=== PATIENT | female | born 1970 | race Caucasian/White ===

== ENCOUNTER → 2024-02-24 10:33 | Outpatient (BNVA) | payer OTHER, SELFPAY | PROVIDERS: Visit Provider Psychiatry & Neurology Psychiatry | DX: F31.81 Bipolar II disorder (principal) | CPT/HCPCS: 80053; 80061; 83036; 84443; 85025 ==

== ENCOUNTER → 2024-04-19 14:59 | Outpatient (BNVA) | payer OTHER, SELFPAY | PROVIDERS: Visit Provider Family Medicine | DX: R79.89 Other specified abnormal findings of blood chemistry (principal); Z86.39 Personal history of other endocrine, nutritional and metabolic disease; N18.31 Chronic kidney disease, stage 3a; M25.511 Pain in right shoulder; G89.29 Other chronic pain | CPT/HCPCS: 80053; 84439; 84443; 85025; 86376 ==

== ENCOUNTER 2024-06-21 16:21 | Outpatient (CLI) | payer MEDICAID, SELFPAY ==
[2024-06-21 16:54] LABS: Basophils # 0.1 10^3/uL (0.0-0.1); Basophils % 0.6 %; Eosinophils # 0.2 10^3/uL (0.0-0.8); Lymphocytes # 2.7 10^3/uL (0.8-4.8); Lymphocytes % 31.5 %; Mean Corpuscular HGB Conc 32.4 g/dL (30-55); Mean Corpuscular Hemoglobin 28.6 pg (27-33); Mean Corpuscular Volume 88.4 fl (85-98); Mean Platelet Volume 9.5 fL (7.4-10.4); Monocytes # 0.7 10^3/uL (0.2-0.9); Monocytes % 7.7 %; Neutrophils # 5.03 10^3/uL (1.8-7.7); Nucleated Red Blood Cells % 0 %; Platelet Count 186 10^3/cmm (157-399); Red Blood Count 4.75 10^6/uL (3.85-5.65); Red Cell Distribution Width 13.6 % (12.1-15.1); White Blood Count 8.67 10^3/uL (3.29-11.43)
[2024-06-21 17:16] LABS: Alanine Aminotransferase 19 U/L (0-33); Albumin Level 4.3 g/dL (3.5-5.2); Alkaline Phosphatase 118 U/L (35-105); Aspartate Amino Transferase 13 U/L (0-32); Blood Urea Nitrogen 13 mg/dL (6-20); Calcium 9.1 mg/dL (8.5-10.5); Carbon Dioxide 28 mmol/L (22-29); Chloride 101 mmol/L (98-107); Free T4 Free Thyroxine 0.97 ng/dL (0.82-1.77); Globulin 2.7 g/dL (1.3-4.6); Glomerular Filtration Rate 57.6 mL/min (90-130); Glucose 87 mg/dL (65-115); Osmolality Calculated 291 mOsm/kg (285-295); Sodium 141 mmol/L (136-145); Thyroid Stimulating Hormone 4.51 uIU/mL (0.27-4.20); Total Bilirubin 0.2 mg/dL (0.15-1.2)
[2024-06-21 17:27] LABS: Estmated Average Glucose 117; Hemoglobin A1C 5.7 % (4.0-6.0)
== END 2024-06-21 16:22 | disposition home or self-care (01) ==
LOC: LAB 16:24
PROVIDERS: PCP Family Medicine; Visit Provider Family Medicine
DX: Z51.81 Encounter for therapeutic drug level monitoring (principal); E03.9 Hypothyroidism, unspecified; R73.09 Other abnormal glucose
CPT/HCPCS: 36415; 80053; 83036; 84439; 84443; 85025

== ENCOUNTER 2024-06-24 17:56 | Emergency (ER) | payer MEDICAID, SELFPAY ==
[2024-06-24 18:21] VITALS: BP 134/86; PULSE 70; RESP 18; TEMP 36.6; O2SAT 96; BMI 38.5
[2024-06-24 21:14] LABS: Amphetamines Screen Urine Negative (Negative); Barbiturates Screen Urine Negative (Negative); Benzodiazepines Screen Urine Negative (Negative); Cocaine Screen Urine Negative (Negative); Opiate Screen Urine Negative (Negative); PCP Screen Urine Negative (Negative); THC Screen Urine Negative (Negative)
[2024-06-24 21:37] LABS: Basophils % 0.4 %; Eosinophils # 0.2 10^3/uL (0.0-0.8); Eosinophils % 2.2 %; Hematocrit 42.6 % (36-47); Lymphocytes # 2.7 10^3/uL (0.8-4.8); Lymphocytes % 27.9 %; Mean Corpuscular HGB Conc 32.2 g/dL (30-55); Mean Corpuscular Hemoglobin 28.4 pg (27-33); Mean Corpuscular Volume 88.2 fl (85-98); Mean Platelet Volume 9.1 fL (7.4-10.4); Monocytes # 0.6 10^3/uL (0.2-0.9); Monocytes % 6.1 %; Neutrophils # 6.17 10^3/uL (1.8-7.7); Nucleated Red Blood Cells % 0 %; Platelet Count 193 10^3/cmm (157-399); Red Blood Count 4.83 10^6/uL (3.85-5.65); Red Cell Distribution Width 13.6 % (12.1-15.1)
[2024-06-24 21:56] LABS: Anion Gap 15.7 (5-19); Blood Urea Nitrogen 12 mg/dL (6-20); Calcium 9.5 mg/dL (8.5-10.5); Carbon Dioxide 27 mmol/L (22-29); Chloride 100 mmol/L (98-107); Creatinine Clr Calc Pharmacy 63.2621; Glomerular Filtration Rate 57.6 mL/min (90-130); Glucose 90 mg/dL (65-115); Osmolality Calculated 287 mOsm/kg (285-295); Potassium 3.7 mmol/L (3.5-5.1); Sodium 139 mmol/L (136-145)
--- NOTE | 2024-06-24 22:03 | CTR_ITS ---
PROCEDURE INFORMATION: Exam: CT Abdomen And Pelvis With Contrast Exam date and time: 06/24/2024 10:26 PM Age: 54 years old Clinical indication: Abdominal pain; Periumbilical; Additional info: Low abd pain, dx UTI not getting better, clots in urine TECHNIQUE: Imaging protocol: Computed tomography of the abdomen and pelvis with contrast. Radiation optimization: All CT scans at this facility use at least one of these dose optimization techniques: automated exposure control; mA and/or kV adjustment per patient size (includes targeted exams where dose is matched to clinical indication); or iterative reconstruction. Contrast material: OMNI 350; Contrast volume: 100 ml; Contrast route: INTRAVENOUS (IV); COMPARISON: No relevant prior studies available. RADIATION DOSE METRICS: Total DLP (mGy-cm): 825.19 FINDINGS: Liver: Normal. No mass. Gallbladder and biliary ducts: There has been a cholecystectomy. Pancreas: Normal. No ductal dilation. Spleen: Normal. No splenomegaly. Adrenal glands: Normal. No mass. Kidneys and ureters: Normal. No hydronephrosis. Stomach and bowel: Fatty wall of the colon that might be from prior colitis. Appendix: No evidence of appendicitis. Intraperitoneal space: Unremarkable. No free air. No significant fluid collection. Vasculature: Calcified atheromas of the visualized arteries. There are numerous benign phleboliths in the pelvis. Lymph nodes: Unremarkable. No enlarged lymph nodes. Urinary bladder: Mild thickening of the wall of the bladder, likely related to underdistention. Reproductive: Unremarkable as visualized. Bones/joints: The lumbar spine demonstrates mild degenerative changes at multiple levels. Soft tissues: Unremarkable. CT/CT abdomen pelvis w con* [id number] IMPRESSION: 1. No renal lesion or urinary stones. 2. Bladder wall thickening with mucosal enhancement, consistent with cystitis.
--- NOTE | 2024-06-24 22:04 | W.ED.FEMALGU ---
HPI - Female Genitourinary General: Chief complaint: Urogenital-Female Stated complaint: mucus, blood urine Time Seen by Provider: 06/24/24 20:58 Source: patient Mode of arrival: ambulatory Limitations: no limitations History of Present Illness: Patient is a 54-year-old female with past medical history of CKD stage 3a who presents to the emergency department complaining of dysuria and hematuria worsening over the past few days. On Friday she saw primary care was diagnosed with dehydration. She saw primary care again today and had a urinalysis performed and was treated for UTI with 3 times a day amoxicillin for 5 days. Patient states since discharge she has started to notice that she is urinating clots and has pretty significant pain/fullness sensation when she voids. She compares it to being punched in the gut. However at rest states that it is not as severe, and she is not explicitly having any abdominal pain or back pain. Denies any history of kidney stones or pyelonephritis. Denies any chest pain, shortness of breath, nausea/vomiting/diarrhea, fevers, recent illness, recent medication changes other than the amoxicillin today, and any other symptoms at this time. MD elicited complaint: dysuria Onset (ago): day(s) Location of symptoms: urethra Severity: moderate Quality of pain: other (Pressure) Consistency: constant Urinary symptoms: Dysuria and Hematuria Exacerbating factors: urination Associated symptoms: Reports abdominal pain; Deny headache(s) or nausea Related Data Home Medications ?Medication ?Instructions ?Recorded ?Confirmed alprazolam 0.5 mg tablet 0.5 mg PO BID PRN 02/24/24 06/24/24 fluticasone propionate 50 1 spray intranasal DAILY 02/24/24 06/24/24 mcg/actuation nasal spray,suspension loratadine 10 mg tablet (Claritin) 10 mg PO DAILY 02/24/24 06/24/24 acetaminophen 300 mg-codeine 60 mg 1 tab PO Q6H PRN 04/19/24 06/24/24 tablet metoprolol succinate 25 mg 25 mg PO DAILY 04/19/24 06/24/24 tablet,extended release 24 hr Previous Rx's ?Medication ?Instructions ?Recorded ezetimibe 10 mg tablet 10 mg PO .HS #90 tabs 04/19/24 bupropion HCl 300 mg 24 hr tablet, 300 mg PO QAM #30 tabs 05/21/24 extended release (Wellbutrin XL) buspirone 10 mg tablet 10 mg PO TID #90 tabs 05/21/24 lamotrigine 100 mg tablet 100 mg PO DAILY #30 tabs 05/21/24 lamotrigine 25 mg tablet 25 mg PO DAILY #30 tabs 05/21/24 olanzapine 5 mg tablet 5 mg PO DAILY #30 tabs 05/21/24 risperidone 1 mg tablet 1 mg PO BID #60 tabs 05/21/24 trazodone 50 mg tablet 100 mg (2 x 50 mg) PO .HS PRN 05/21/24 insomnia #60 tabs baclofen 10 mg tablet 10 mg PO BID PRN muscle spasm #30 05/24/24 tabs omeprazole 20 mg capsule,delayed 20 mg PO QDAY #60 caps 05/24/24 release phenazopyridine 100 mg tablet 100 mg PO Q8H 6 doses #6 tabs 06/24/24 (Pyridium) sulfamethoxazole 800 2 tab PO DAILY 10 days #20 tabs 06/24/24 mg-trimethoprim 160 mg tablet (Bactrim DS) Allergies Allergy/AdvReac Type Severity Reaction Status Date / Time carbamazepine (From Tegretol) Allergy Hives Verified 06/24/24 18:26 phenytoin (From Dilantin) Allergy Itching/Turning Verified 06/24/24 18:26 red. divalproex sodium (From AdvReac Severe Excessive Verified 06/24/24 18:26 Depakote) weight gain Novacain Allergy Severe Anaphylaxis Uncoded 06/24/24 18:26 Shellfish Allergy Severe Anaphylaxis Uncoded 06/24/24 18:26 Bee stings AdvReac Severe Swelling Uncoded 06/24/24 18:26 Review of Systems General: Reports: 10 or more systems reviewed and unremarkable except in HPI and below Const: Denies: fever(s), chills, change in appetite, change in weight or diaphoresis ENMT: Denies: throat pain or hoarseness Card: Denies: chest pain, palpitations or lightheadedness Resp: Denies: dyspnea, productive cough or wheezing GI: Reports: abdominal pain; Denies: nausea, vomiting, diarrhea, constipation, bloating, change in stool character or hematochezia : Reports: dysuria and hematuria; Denies: flank pain Musc: Denies: neck pain or back pain Skin/Breast: Denies: rash or new lesions Neuro: Denies: headache(s) or dizziness PFSH ED PFSH: Medical History CKD stage 3a, GFR 45-59 ml/min GERD (gastroesophageal reflux disease) Obesity (BMI 30.0-34.9) Nicotine dependence, cigarettes, uncomplicated Post-traumatic stress disorder, chronic Bipolar 2 disorder Surgical History H/O laparoscopy H/O hysterectomy with oophorectomy H/O arthroscopic knee surgery History of arthroscopic surgery of shoulder Hx of appendectomy Hx of cholecystectomy Family History Grandfather Diabetes Hypertension Chronic kidney disease (CKD) Father Lung disease Mother Heart disease Atrial fibrillation Congestive heart failure (CHF) Grandmother Heart disease Stroke Peripheral vascular disease Sister Cancer Social History Smoking and tobacco/nicotine status: never used tobacco/nicotine Alcohol intake: current Alcohol intake frequency: holidays/special occasions only Substance/Drug Use: never Physical Exam Const: COMMON NORMALS: no acute distress, average body habitus, patient oriented x3, no limitations, healthy appearing, alert and well nourished GENERAL APPEARANCE: cooperative and comfortable ORIENTATION/CONSCIOUSNESS: Yes awake HENMT: COMMON NORMALS: normocephalic, atraumatic, hearing grossly normal bilaterally, external ears normal, Normal external nose present, Normal nasal mucous membranes and turbinates present and moist oral mucous membranes HEAD & SCALP: normocephalic and atraumatic NOSE: Normal external nose present and Normal nasal mucous membranes and turbinates present EXTERNAL EAR: Yes external ears normal Eye: COMMON NORMALS: Equal, round and reactive pupils present, EOMs intact bilaterally, conjunctivae normal and normal visual roland by confrontation CONJUNCTIVA: Yes conjunctivae normal PUPIL: Yes Equal, round and reactive pupils present Neck/C-Spine: COMMON NORMALS: full ROM, supple, no meningeal signs and no JVD Resp: COMMON NORMALS: normal respiratory effort, No retractions, No use of accessory muscles and clear to auscultation bilaterally AUSCULTATION: clear to auscultation bilaterally, no crackles, no rales, no rhonchi and no wheezes Cardio: COMMON NORMALS: no JVD, regular rate, regular rhythm, S1 normal heart sound present, S2 normal heart sound present, No gallops present (Cardio), No clicks present (Cardio), No murmurs present (Cardio), No rub (Cardio) and Peripheral pulses 2+ throughout RATE: regular rate RHYTHM: regular rhythm HEART SOUNDS: S1 normal heart sound present and S2 normal heart sound present PERIPHERAL PULSES: Peripheral pulses 2+ throughout GI: COMMON NORMALS: Normal to inspection, nondistended, normoactive bowel sounds present, Soft to palpation, non-tender, No hepatosplenomegaly present and no masses AUSCULTATION: Yes normoactive bowel sounds PALPATION: Yes Soft to palpation, No Guarding due to palpation present (GI), No Rigid due to palpation and Yes No hepatosplenomegaly present RECTAL EXAM: deferred : COMMON NORMALS: Yes no CVA tenderness BLADDER/KIDNEY EXAM: Yes no CVA tenderness Back/Pelvis: COMMON NORMALS: no CVA tenderness Extremity: COMMON NORMALS: normal to inspection and full ROM Neuro: COMMON NORMALS: patient oriented x3, moves all extremities, no focal motor deficits and no sensory deficits noted SENSORIUM/ORIENTATION: Yes alert MENINGEAL SIGNS: Yes no meningeal signs Psych: COMMON NORMALS: mental status grossly normal, cooperative and speech normal SPEECH: Yes normal speech Skin: COMMON NORMALS: no rashes or lesions noted GENERAL SKIN EXAM: no rashes or lesions noted Course Vital Signs: Vital signs: Vital Signs Temperature 98 F 06/24/24 18:21 Pulse Rate 94 06/24/24 23:13 Respiratory Rate 16 06/24/24 23:13 Blood Pressure 138/96 06/24/24 23:13 Pulse Oximetry 97 06/24/24 23:13 Oxygen Delivery Me thod Room Air 06/24/24 18:21 MDM - Female Medical Decision Making Patient started on amoxicillin today for UTI, reported worsening dysuria and passing clots. Urinalysis here showed red blood cells, white blood cells, bacteria, leukocyte, and was nitrate positive. Rest of her lab work unremarkable. CT showing bladder wall thickening consistent of the cystitis, this is likely a low-grade hemorrhagic cystitis with reports of blood and thus we will have her referred to urology for further evaluation. Family will switch to more appropriate antibiotic, Bactrim, and she is requesting something for the pain so we will give her a few doses of Pyridium. Encouraged her to increase her fluid intake and to return if her condition worsens. She verbalized understanding. Lab Data 06/24/24:06/24/24: Radiology Impressions Abdomen/Pelvis CT 06/24/24 22:03 IMPRESSION: 1. No renal lesion or urinary stones. 2. Bladder wall thickening with mucosal enhancement, consistent with cystitis. Laboratory Results WBC 9.80 10^3/uL (3.29-11.43) 06/24/24: RBC 4.83 10^6/uL (3.85-5.65) 06/24/24 Hgb 13.70 g/dL (11.27-16.99) 06/24/24: Hct 42.6 % (36-47) 06/24/24: MCV 88.2 fl (85-98) 06/24/24: MCH 28.4 pg (27-33) 06/24/24: MCHC 32.2 g/dL (30-55) 06/24/24: RDW 13.6 % (12.1-15.1) 06/24/24 Plt Count 193 10^3/cmm (157-399) 06/24/24: MPV 9.1 fL (7.4-10.4) 06/24/24: Neut % (Auto) 63.0 % 06/24/24: Lymph % (Auto) 27.9 % 06/24/24: [place] % (Auto) 6.1 % 06/24/24: Eos % (Auto) 2.2 % 06/24/24 Baso % (Auto) 0.4 % 06/24/24 Neut # (Auto) 6.17 10^3/uL (1.8-7.7) 06/24/24 Lymph # (Auto) 2.7 10^3/uL (0.8-4.8) 06/24/24: [place] # (Auto) 0.6 10^3/uL (0.2-0.9) 06/24/24 21:25 Eos # (Auto) 0.2 10^3/uL (0.0-0.8) 06/24/24 21: Baso # (Auto) 0.0 10^3/uL (0.0-0.1) 06/24/24: Nucleated RBC % (auto) 0 % 06/24/24: Nucleated RBCs # 0.0 /100WBC 06/24/24 21: Sodium 139 mmol/L (136-145) 06/24/24 21: Potassium 3.7 mmol/L (3.5-5.1) 06/24/24: Chloride 100 mmol/L (98-107) 06/24/24: Carbon Dioxide 27 mmol/L (22-29) 06/24/24: Anion Gap 15.7 (5-19) 06/24/24: BUN 12 mg/dL (6-20) 06/24/24: Creatinine 1.0 mg/dL (0.5-0.9) H 06/24/24: GFR Calculation 57.6 mL/min (90-130) L 06/24/24: Glucose 90 mg/dL (65-115) 06/24/24: Calculated Osmolality 287 mOsm/kg (285-295) 06/24/24: Calcium 9.5 mg/dL (8.5-10.5) 06/24/24: Lipase 16 U/L (13-60) 06/24/24: Urine Color Yellow (Yellow) 06/24/24: Urine Appearance Turbid (CLEAR) A 06/24/24: Urine pH 5.0 (5-7) 06/24/24: Ur Specific [place] 1.018 (1.005-1.030) 06/24/24: Urine Protein 3+ (Negative) A 06/24/24: Urine Glucose (UA) Negative (Normal) 06/24/24: Urine Ketones Negative (Negative) 06/24/24: Urine Blood 3+ (Negative) A 06/24/24: Urine Nitrate Positive (Negative) A 06/24/24:20 Urine Bilirubin Negative (Negative) 06/24/24 21:20 Urine Urobilinogen 1.0 mg/dL (Negative) 06/24/24 21:20 Ur Leukocyte Esterase 2+ (Negative) A 06/24/24 21:20 Urine RBC 40-50 /hpf (0-2) H 06/24/24 21:20 Urine WBC 25-40 /hpf (0-5) H 06/24/24 21:20 Ur Squamous Epith Cells 0-4 /hpf (0-5) H 06/24/24 21:20 Amorphous Sediment Not Reportable 06/24/24 21:20 Urine Bacteria 2+ /hpf (NONE) H 06/24/24 21:20 Urine Opiates Screen Negative ng/mL (Negative) 06/24/24 20: Ur Barbiturates Screen Negative ng/mL (Negative) 06/24/24 20:28 Ur Phencyclidine Scrn Negative ng/mL (Negative) 06/24/24 20:28 Ur Amphetamines Screen Negative ng/mL (Negative) 06/24/24 20:28 U Benzodiazepines Scrn Negative ng/mL (Negative) 06/24/24 20:28 Urine Cocaine Screen Negative ng/mL (Negative) 06/24/24 20:28 U Marijuana (THC) Screen Negative ng/mL (Negative) 06/24/24 20:28 All radiology interpretation(s) finalized by discharge Discharge Plan Discharge Patient Disposition: Home Clinical Impression: Acute hemorrhagic cystitis Condition: Stable Prescriptions: New sulfamethoxazole-trimethoprim [Bactrim DS] 800-160 mg tablet 2 tab PO DAILY 10 Days Qty: 20 0RF phenazopyridine [Pyridium] 100 mg tablet 100 mg PO Q8H Qty: 6 0RF Discontinued amoxicillin 500 mg capsule 500 mg PO TID 7 Days Qty: 21 0RF No Action risperidone 1 mg tablet 1 mg PO BID Qty: 60 2RF trazodone 50 mg tablet 100 mg PO .HS PRN (Reason: insomnia) Qty: 60 2RF olanzapine 5 mg tablet 5 mg PO DAILY Qty: 30 2RF buspirone 10 mg tablet 10 mg PO TID Qty: 90 2RF bupropion HCl [Wellbutrin XL] 300 mg tablet extended release 24 hr 300 mg PO QAM Qty: 30 2RF lamotrigine 25 mg tablet 25 mg PO DAILY Qty: 30 2RF lamotrigine 100 mg tablet 100 mg PO DAILY Qty: 30 2RF acetaminophen-codeine 300-60 mg tablet 1 tab PO Q6H PRN metoprolol succinate 25 mg tablet extended release 24 hr 25 mg PO DAILY ezetimibe 10 mg tablet 10 mg PO .HS Qty: 90 1RF alprazolam 0.5 mg tablet 0.5 mg PO BID PRN loratadine [Claritin] 10 mg tablet 10 mg PO DAILY fluticasone propionate 50 mcg/actuation spray,suspension 1 spray intranasal DAILY Rx Instructions: administer into each nostril omeprazole 20 mg capsule,delayed release(DR/EC) 20 mg PO QDAY Qty: 60 0RF baclofen 10 mg tablet 10 mg PO BID PRN (Reason: muscle spasm) Qty: 30 0RF Discharge Orders: Discharge ED (Routine); Ordered 06/24/24 Ordered By: Jamaal Lea Referrals: Rome Curtis MD [Primary Care Provider] - Patient Instructions: Hemorrhagic Cystitis Activity Restrictions/Additional Instructions: Stop taking the amoxicillin and start taking Bactrim as prescribed. Pyridium for pain. Make sure that you are drinking adequate amount of fluids. Follow-up with urology, await call to set up the appointment. Please follow-up routinely with primary care. Return with any worsening of pain, worsening of bleeding, abdominal pain, fevers, vomiting, or other concerns that you have. Please see attached patient instructions for any further education. Print Language: Malawian Coding Level of Care Code ED Space Control Supervisor for Varsha Carcamo
[2024-06-24 22:20] LABS: Bilirubin Urine Negative (Negative); Blood Urine 3+ (Negative); Glucose Urine UA Negative (Normal); Ketones Urine Negative (Negative); Leukocyte Esterase Urine 2+ (Negative); Nitrate Urine Positive (Negative); Protein Urine 3+ (Negative); Specific Gravity, Urine 1.018 (1.005-1.030); Urine Appearance Turbid (CLEAR); Urine Color Yellow (Yellow)
[2024-06-24 22:30] VITALS: BP 114/83; PULSE 135; RESP 16; O2SAT 96
[2024-06-24 22:31] LABS: Lipase 16 U/L (13-60)
[2024-06-24] MEDS: iohexol 350 mg/mL 500 mL Btl (per mL) IV (22:34)
[2024-06-24 22:41] LABS: Add Urine Microscopic? YES; RBC Urine 40-50 /hpf (0-2); WBC Urine 25-40 /hpf (0-5)
[2024-06-24 22:42] LABS: Add Urine Culture? Yes; Bacteria Urine 2+ /hpf; Squamous Epithelial Cell Urine 0-4 /hpf (0-5)
[2024-06-24 23:13] VITALS: BP 138/96; PULSE 94; RESP 16; O2SAT 97
[2024-06-24] MEDS: phenazopyridine 100 mg Tablet PO (23:46)
[2024-06-24] MEDS: sulfamethoxazole-trimeth DS 160-800 mg Tablet 1 TAB PO (23:46)
== END 2024-06-24 23:55 | disposition home or self-care (01) ==
PROVIDERS: Emergency Medicine; Emergency Provider Physician Assistant; PCP Family Medicine
DX: N30.01 Acute cystitis with hematuria (principal); N18.31 Chronic kidney disease, stage 3a
CPT/HCPCS: 36415; 74177; 80048; 80306; 81000; 81001; 83690; 85025; 87077; 87086; 87186; 99285

== ENCOUNTER → 2024-07-27 09:11 | Outpatient (BNVA) | payer MEDICAID, SELFPAY | PROVIDERS: PCP Family Medicine; Visit Provider Orthopaedic Surgery | DX: M25.511 Pain in right shoulder (principal); G89.29 Other chronic pain | CPT/HCPCS: 73030 ==

== ENCOUNTER 2024-08-09 12:56 | Outpatient (CLI) | payer MEDICAID, SELFPAY ==
--- NOTE | 2024-08-09 13:00 | MR_ITS ---
WS: [id number] MRI RIGHT SHOULDER HISTORY: Right shoulder pain, prior rotator cuff repair x3. COMPARISON: Radiograph 07/27/2024 TECHNIQUE: Multiplanar sequences of the shoulder joint are submitted. Micrometallic artifacts in the soft tissues of the shoulder from prior surgery. Status post resection of the distal clavicle. Small amount of fluid in the subacromial bursa. No os acromion. Biceps tendon normally positioned in the bicipital groove. There is a small amount of increased T2 signal in the central tendon suggesting mild tendinopathy. Mildly high riding humeral head. Mild narrowing of the glenohumeral joint. Small subchondral cysts along the posterior lateral humeral head. No rotator cuff muscle atrophy or edema. There is a small amount of increased T2 signal in the distal supraspinatus tendon along the articular surface. Most significant for tendinopathy. No full-thickness tear. Intermediate signal in the superior labrum. The remaining labrum appears of normal signal. No fluid in the axillary pouch. MR/MR shoulder RT wo con* [id number] IMPRESSION: 1. No rotator cuff tendon tear identified. 2. Short segment intermediate signal along the distal articular surface of the supraspinatus tendon. Most consistent with tendinopathy. 3. Prior surgical excision of the distal clavicle. 4. Intermediate signal in the superior labrum. Signal is irregular consistent with superior labral tear. The remaining labrum appears intact. 5. Mild biceps tendinopathy.
== END 2024-08-09 12:57 | disposition home or self-care (01) ==
PROVIDERS: PCP Family Medicine; Visit Provider Orthopaedic Surgery
DX: M67.813 Other specified disorders of tendon, right shoulder (principal); R93.6 Abnormal findings on diagnostic imaging of limbs; Z98.890 Other specified postprocedural states
CPT/HCPCS: 73221

== ENCOUNTER 2024-08-24 09:42 | Outpatient (CLI) | payer MEDICAID, SELFPAY ==
[2024-08-24 10:40] LABS: Basophils % 0.6 %; Eosinophils # 0.1 10^3/uL (0.0-0.8); Eosinophils % 1.7 %; Hematocrit 41.4 % (36-47); Lymphocytes # 2.3 10^3/uL (0.8-4.8); Lymphocytes % 32.3 %; Mean Corpuscular HGB Conc 33.8 g/dL (30-55); Mean Corpuscular Hemoglobin 29.2 pg (27-33); Mean Corpuscular Volume 86.4 fl (85-98); Mean Platelet Volume 9.2 fL (7.4-10.4); Monocytes # 0.5 10^3/uL (0.2-0.9); Monocytes % 7.2 %; Neutrophils # 4.12 10^3/uL (1.8-7.7); Neutrophils % 57.9 %; Nucleated Red Blood Cells % 0 %; Platelet Count 176 10^3/cmm (157-399); Red Blood Count 4.79 10^6/uL (3.85-5.65); Red Cell Distribution Width 13.4 % (12.1-15.1); White Blood Count 7.11 10^3/uL (3.29-11.43)
[2024-08-24 10:57] LABS: Bilirubin Urine Negative (Negative); Blood Urine Trace (Negative); Glucose Urine UA Negative (Normal); Ketones Urine Negative (Negative); Leukocyte Esterase Urine Trace (Negative); Nitrate Urine Negative (Negative); Protein Urine Negative (Negative); Specific Gravity, Urine 1.005 (1.005-1.030); Urine Appearance Cloudy (CLEAR); Urine Color Yellow (Yellow); Urobilinogen Urine 0.2 mg/dL (Negative); pH Urine 5.5 (5-7)
[2024-08-24 11:02] LABS: Add Urine Microscopic? YES; Bacteria Urine None Seen /hpf; Hyaline Casts Urine 0-4 /lpf; RBC Urine 0-2 /hpf (0-2); Squamous Epithelial Cell Urine 0-5 /hpf (0-5); WBC Urine 0-5 /hpf (0-5)
[2024-08-24 11:04] LABS: Alanine Aminotransferase 6 U/L (0-33); Albumin Level 4.4 g/dL (3.5-5.2); Alkaline Phosphatase 87 U/L (35-105); Anion Gap 15.2 (5-19); Aspartate Amino Transferase 7 U/L (0-32); Blood Urea Nitrogen 15 mg/dL (6-20); Calcium 9.4 mg/dL (8.5-10.5); Carbon Dioxide 26 mmol/L (22-29); Chloride 105 mmol/L (98-107); Globulin 2.7 g/dL (1.3-4.6); Glomerular Filtration Rate 57.6 mL/min (90-130); Glucose 85 mg/dL (65-115); Osmolality Calculated 294 mOsm/kg (285-295); Potassium 4.2 mmol/L (3.5-5.1); Sodium 142 mmol/L (136-145); Total Bilirubin 0.3 mg/dL (0.15-1.2); Total Protein 7.1 g/dL (6.6-8.7)
== END 2024-08-24 09:43 | disposition home or self-care (01) ==
PROVIDERS: PCP Family Medicine; Visit Provider Orthopaedic Surgery
DX: Z01.818 Encounter for other preprocedural examination (principal)
CPT/HCPCS: 36415; 80053; 81001; 85025

== ENCOUNTER → 2024-08-28 10:32 | Outpatient (BNVA) | payer MEDICAID, SELFPAY | PROVIDERS: PCP Family Medicine; Visit Provider Registered Nurse Neonatal Intensive Care | DX: R30.0 Dysuria (principal); N39.0 Urinary tract infection, site not specified | CPT/HCPCS: 81000; 87077; 87086; 87184 ==

== ENCOUNTER → 2024-09-03 13:19 | Outpatient (BNVA) | payer MEDICAID, SELFPAY | PROVIDERS: PCP Family Medicine; Visit Provider Family Medicine | DX: Z01.818 Encounter for other preprocedural examination (principal) | CPT/HCPCS: 81003 ==

== ENCOUNTER 2024-09-14 05:30 | Day surgery (SDC) | payer MEDICAID, SELFPAY ==
[2024-09-14] VITALS (10 sets, daily range): BP systolic 117–138; BP diastolic 78–94; PULSE 65–86; RESP 16–18; TEMP 36.1–36.4; O2SAT 90–97; BMI 30.2
[2024-09-14] MEDS: sodium chloride 0.9% 1,000 ML 30 ML IV (06:11)
--- NOTE | 2024-09-14 06:41 | ANES.PREANE2 ---
Pre-Anesthetic Assessment Height/Weight: Height 1.65 m Weight 82.554 kg Temp Pulse Resp BP Pulse Ox O2 Del Method 97.0 F L 65 18 117/78 94 Room Air 09/14/24 05:52 09/14/24 05:52 09/14/24 05:52 09/14/24 05:52 09/14/24 05:52 09/14/24 05:52 Operation Date: 09/14/24 07:00 Proposed Procedures p Right Shoulder Diganostic & Arthroscopy(Right) - Lucas Orourke MD Familial anesthetic complications: Anapylaxis to novacaine (katharina) in the 80s. States she has done well with lidocaine for dental procedures and has had multiple nerve blocks since with no issues. Only novocaine caused issued. Patient is Requesting nerve block for her shoulder today. Risks discussed with patient Was Beta John taken within 24 hours: N/A Was Clonidine taken within 24 hours: N/A Last intake: Intake Last Liquid Date 09/13/24 Last Liquid Time 22:00 Last Solid Date 09/13/24 Last Solid Time 18:00 Social Tobacco and No alcohol Exam alert, oriented x 3, clear to auscultation bilaterally and regular rate & rhythm CV/HEM Myocardial Infarction (6 years ago) GI Gastroesophageal Reflux Disease Metabolic Hyperlipidemia and Thyroid Disease Neuropsych Seizure (last one in 1999) Anesthetic Plan ASA status: 3 Anesthesia: General and Regional (specify below) Risk of > 500 ml blood loss (7ml/kg in children): No Medications/Allergies Home Medications ?Medication ?Instructions ?Recorded ?Confirmed ?Last Taken ?Type alprazolam 0.5 mg tablet 0.5 mg PO BID PRN Anxiety 02/24/24 09/13/24 09/13/24 08:30 History fluticasone propionate 50 1 spray intranasal DAILY 02/24/24 09/13/24 09/13/24 08:30 History mcg/actuation nasal spray,suspension loratadine 10 mg tablet (Claritin) 10 mg PO DAILY 02/24/24 09/13/24 09/13/24 08:30 History ezetimibe 10 mg tablet 10 mg PO .HS #90 tabs 04/19/24 09/13/24 09/13/24 08:30 Rx bupropion HCl 300 mg 24 hr tablet, 300 mg PO QAM #30 tabs 08/23/24 09/13/24 09/13/24 08:30 Rx extended release (Wellbutrin XL) buspirone 10 mg tablet 10 mg PO TID #90 tabs 08/23/24 09/13/24 09/13/24 08:30 Rx lamotrigine 100 mg tablet 100 mg PO DAILY #30 tabs 08/23/24 09/13/24 09/13/24 08:30 Rx lamotrigine 25 mg tablet 25 mg PO DAILY #30 tabs 08/23/24 09/13/24 09/13/24 08:30 Rx risperidone 1 mg tablet 1 mg PO BID #60 tabs 08/23/24 09/13/24 09/13/24 08:30 Rx trazodone 50 mg tablet 100 mg (2 x 50 mg) PO .HS PRN 08/23/24 09/13/24 09/13/24 08:30 Rx insomnia #60 tabs omeprazole 20 mg capsule,delayed 20 mg PO QDAY #60 caps 08/30/24 09/13/24 09/13/24 08:30 Rx release baclofen 10 mg tablet 10 mg PO BID PRN muscle spasm #60 09/13/24 09/13/24 09/13/24 08:30 Rx tabs olanzapine 5 mg tablet (Zyprexa) 5 mg PO DAILY 09/13/24 09/13/24 09/13/24 08:30 History Allergies Allergy/AdvReac Type Severity Reaction Status Date / Time carbamazepine (From Tegretol) Allergy Hives Verified 09/14/24 06:01 phenytoin (From Dilantin) Allergy Itching/Turning Verified 09/14/24 06:01 red. divalproex sodium (From AdvReac Severe Excessive Verified 09/14/24 06:01 Depakote) weight gain Novacain Allergy Severe Anaphylaxis Uncoded 09/14/24 06:01 Shellfish Allergy Severe Anaphylaxis Uncoded 09/14/24 06:01 Bee stings AdvReac Severe Swelling Uncoded 09/14/24 06:01 Current Medications Generic Name Dose Route Start Last Admin Trade Name Freq PRN Reason Stop Dose Admin Sodium Chloride 1,000 mls @ 30 mls/hr 09/14/24 06:00 09/14/24 06:11 Sodium Chloride 0.9% IV 09/15/24 05:59 30 mls/hr .Q24H JOÃO Administration PFSH Anesthesia Medical History CKD stage 3a, GFR 45-59 ml/min GERD (gastroesophageal reflux disease) Obesity (BMI 30.0-34.9) Nicotine dependence, cigarettes, uncomplicated Post-traumatic stress disorder, chronic Bipolar 2 disorder Surgical History H/O laparoscopy H/O hysterectomy with oophorectomy H/O arthroscopic knee surgery History of arthroscopic surgery of shoulder Hx of appendectomy Hx of cholecystectomy Family History Grandfather Diabetes Hypertension Chronic kidney disease (CKD) Father Lung disease Mother Heart disease Atrial fibrillation Congestive heart failure (CHF) Grandmother Heart disease Stroke Peripheral vascular disease Sister Cancer Social History Smoking and tobacco/nicotine status: current every day tobacco/nicotine user Alcohol intake: current Alcohol intake frequency: holidays/special occasions only Substance/Drug Use: never
--- NOTE | 2024-09-14 07:00 | ANES.PROC ---
Anesthesia Procedures Procedure/Date: 09/14/24 Nerve Block ^: Nerve Block 1: Main Anesthesia: general anesthesia Time Out Performed: Yes Consent: requested by attending/covering physician, from patient, from other, risks and benefits reviewed and patient agrees to proceed Nerve block location: interscalene (R) Anesthesia monitors applied: pulse oximetry, EKG, BP cuff and oxygen Nerve block position: semi sitting Anesthetic Used: lidocaine 1% (10 cc) and with decadron (4 mg) Ultrasound used to: recognize landmarks, visualize and ID brachial plexus, in supraclavicular region and visualize and ID interscalene groove Nerve Stimulator Used?: No Interscalene/Femoral BLK: 2 stimuplex 22 g needle used for position and inplane approach, visualize local anesthetic spread and no vascular puncture identified Injection: neg aspiration of heme Patient Tolerated Procedure: well and no complications Complications: none Additional Comments: Diagnosis: Chronic R shoulder pain
--- NOTE | 2024-09-14 07:00 | W.PM.OPSUD ---
Surgery/Procedure H&P Update DATE OF PROCEDURE: September 14, 2024 DATE H&P PERFORMED: 09/03/24 H&P UPDATE INFORMATION: I have reviewed H&P completed within last 30 days, I have examined patient prior to procedure, No changes to prior documentation and Risks and benefits of the procedure reviewed PREOP DIAGNOSIS: Internal derangement of the right shoulder PLANNED PROCEDURE: Operation Date: 09/14/24 07:00 Proposed Procedures p Right Shoulder Diganostic & Arthroscopy(Right) - Lucas Orourke MD
--- NOTE | 2024-09-14 07:00 | SUR.PREOP ---
0658-interscalene block performed at bedside to right shoulder. 10ml 1% lidocaine and 4ml decodran used. patient tolerated well.
[2024-09-14] MEDS: ceFAZolin 2,000 mg SDV 2000 MG IVP (07:05)
--- NOTE | 2024-09-14 08:14 | P.OP_ITS ---
Operative Report Date of procedure: September 14, 2024 Surgeon: Lucas Orourke MD Procedure: Preoperative diagnosis: Internal derangement of the right shoulder Postoperative diagnosis: Degenerative tearing of superior and anterior labrum. 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 Superior and anterior labral debridement, chondroplasty of glenoid, debridement of rotator cuff Surgeon: Lucas Orourke MD Corn Sheller Operator: JIMENA Danielle's assistance was necessary for transport and positioning of the patient. Her assistance was needed during the procedure for manipulation of the extremity, wound closure, transfer the patient to the PACU Anesthesia: General With preoperative scalene block EBL: None Indications: Harshil is a 54-year-old white female who presented to the orthopedic clinic with debilitating right shoulder pain. Patient has previously had shoulder surgery and rotator cuff repair in the past. She states gradually has gotten increasing pain problems and difficulties. Recent MRI demonstrates degenerative changes of the labrum. There is increased signal at the insertion of the supraspinatus tendon of the rotator cuff. Also some tendinosis of the biceps tendon. Therefore after failing all conservative measures patient was offered a diagnostic shoulder arthroscopy with all indicated procedures. All risk benefits treatment alternatives were discussed with her and she is agreeable to this at this time. Procedure: After obtaining her consent the patient received a scalene block in the preop holding area. Patient then taken to the operating room placed on the upper table supine position general anesthetic administered. Once can as he was achieved patient was placed out of the beachchair position secured to the table and padded out appropriately. Right upper extremity and shoulder were prepped and draped in usual fashion. After surgical timeout standard posterior portals made with #11 blade. Camera cans placed within the glenohumeral joint line posteriorly. Anterior working portal was also placed just inferior to the clav icle. Probing of the glenohumeral joint demonstrated fraying and tearing of the anterior portion of the anterior labrum as well as fraying and tearing of the superior labrum. All of this was debrided down to stable cartilaginous base with mechanical shaver. Biceps tendon appeared to be slightly redundant but it appeared to be tracking into the bicipital groove normally. It was probed and found not to be torn away from the glenoid in any way. Evaluating the rotator cuff there was fraying of the undersurface of the supraspinatus tendon just posterior to the hiatus of the biceps tendon. This is debrided mechanical shaver. Probed further and there is no through and through tear. Camera is then repositioned subacromial space and evaluation of rotator cuff wrist made they are finding that there is no abnormalities of the rotator cuff. At this point all cannulas removed. Wounds are closed with 3-0 Prolene interrupted sutures. They were then cleaned and dried dressed with Xeroform gauze sterile gauze dressing ABDs and adhesive tape. Patient placed in arm sling for comfort. Patient then transported to the PACU in stable condition
[2024-09-14] MEDS: fentaNYL 50 mcg/mL INJ 2mL IVP (08:30)
[2024-09-14] MEDS: HYDROcodone-acetaminophen 5-325 mg Tablet 1 TAB PO (09:16)
--- NOTE | 2024-09-14 09:40 | ANE.PACU2 ---
Inpatient post-anesthesia follow up: Airway intact: Yes Vital signs: Temperature 97.5 F Pulse Rate 71 Respiratory Rate 16 Blood Pressure 126/84 Pulse Oximetry 96 Oxygen Delivery Me thod Room Air Oxygen Flow Rate 8 Fraction of Inspir ed Oxygen Hydration adequate: Yes Nausea and vomiting: No Pain level: 1 Mental status: Baseline
--- NOTE | 2024-09-14 09:54 | SUR.PHASEII ---
0855-patient placed on NC at 2L due to O2 sat dropping to 85%. When NC was removed prior to discharge her O2 remained above 92%
== END 2024-09-14 09:40 | disposition home or self-care (01) ==
PROVIDERS: PCP Family Medicine; Visit Provider Orthopaedic Surgery
PROC: (CPT 29805; principal; 2024-09-14 07:00)
DX: S43.431A Superior glenoid labrum lesion of right shoulder, initial encounter (principal); M75.101 Unspecified rotator cuff tear or rupture of right shoulder, not specified as traumatic; S43.491A Other sprain of right shoulder joint, initial encounter; M94.211 Chondromalacia, right shoulder; I25.2 Old myocardial infarction; E78.5 Hyperlipidemia, unspecified; N18.31 Chronic kidney disease, stage 3a; F17.210 Nicotine dependence, cigarettes, uncomplicated; K21.9 Gastro-esophageal reflux disease without esophagitis; E07.9 Disorder of thyroid, unspecified; Z79.899 Other long term (current) drug therapy; Z88.8 Allergy status to other drugs, medicaments and biological substances; Z87.892 Personal history of anaphylaxis; Z88.4 Allergy status to anesthetic agent; X58.XXXA Exposure to other specified factors, initial encounter
CPT/HCPCS: 29823; J0690; J1100; J2250; J2371; J2405; J2704; J2795; J3010; J3490; J7030; J9999

== ENCOUNTER → 2024-09-25 10:07 | Outpatient (BNVA) | payer MEDICAID, SELFPAY | PROVIDERS: PCP Family Medicine; Visit Provider Nurse Practitioner | DX: N39.0 Urinary tract infection, site not specified (principal) | CPT/HCPCS: 81000; 87086 ==

== ENCOUNTER 2024-10-12 07:31 | Outpatient (RCR) | payer MEDICAID, SELFPAY | END 2024-11-01 23:59 | disposition home or self-care (01) | LOC: SPT 07:31 | PROVIDERS: Visit Provider Orthopaedic Surgery | DX: M25.511 Pain in right shoulder (principal); G89.29 Other chronic pain | CPT/HCPCS: 97110; 97161 ==

== ENCOUNTER 2024-11-01 08:39 | Outpatient (CLI) | payer MEDICAID, SELFPAY ==
[2024-11-01 09:01] VITALS: BMI 29.9
--- NOTE | 2024-11-01 09:04 | ECG_ITS ---
[facility] Test Date: 2024-11-01 Pat Name: Jennifer Magallon Department: Room: Gender: Female Pai Gow Manager: : 1970 Requested By: Rome Curtis Order Number: [id number] Anali MD: Kevin Diaz M.D. Interpretive Statements LEXISCAN SESTAMIBI STRESS TEST Procedure: At the baseline, the blood pressure was 124/79 mmHg with a heart rate of 64 bpm. The electrocardiogram showed normal sinus rhythm, normal axis with normal ST and T's. The Lexiscan was infused over a period of 20 seconds. A total of 0.4 mg of Lexiscan was infused. The stress phase was continued for a total of 5 minutes. Heart rate was at the end of stress phase was 83 bpm and a blood pressure of 150/101 mmHg. The EKG at the peak infusion revealed normal sinus rhythm with no significant ST-T wave changes. Sestamibi was injected 20 seconds after the Lexiscan infusion. Blood pressure at the end of recovery phase was 148/93 mmHg with a heart rate of 81 bpm. Conclusion: 1. Normal EKG response to Lexiscan infusion 2. No Lexiscan induced chest pain or cardiac arrhythmia. 3. Normal blood pressure and heart rate response. 4. Sestamibi/sestamibi perfusion scan pending; see separate report. Electronically Signed On 11-13-2024 13:04:19 CDT by Kevin Diaz M.D. [email or web address]
--- NOTE | 2024-11-01 09:05 | NMCV_ITS ---
NM mala perf SPECT r/s* [id number] Jennifer Magallon Age: 54 Gender: F : 1970 Exam Date: 11/01/2024 09:39 Ordering Phys: Rome Curtis MD Technologist: SHERRY Garcia Exam Location: [facility] Indications: cp STRESS TEST Please see separate stress test report in [employer] for full findings IMAGE PROTOCOL Rest/Stress 1 Lexiscan Day Radiopharmaceutical Dose (mCi) Administration Site Administered by Rest: Tc-99m 10.8 IV Valencia Brooke, SLP Sestamibi Stress:Tc-99m 32.6 IV Valencia Brooke, SLP Sestamibi Rest: 01-Nov-2024 60 Discovery 630 Stress: 01-Nov-2024 30 Discovery 630 0.4mg Lexiscan. Images obtained in supine and prone position. SPECT RESULTS Technical Quality: Good Raw Data Analysis: Normal Image Corrections: No attenuation or motion correction applied Summed Stress Score: 1 Summed Rest Score: 0 Summed Difference Score: 1 PERFUSION FINDINGS Small area of reversible perfusion defect seen in the inferolateral wall. This is consistent with small area of ischemia in the left circumflex artery territory. FUNCTIONAL RESULTS (calculated via Gated SPECT) Stress Image LV EF (%): 76 Stress EDV (mL):94 TID: 1.3 Stress ESV (mL):23 FUNCTIONAL FINDINGS: There is normal left ventricular systolic function. TID ratio is elevated IMPRESSIONS 1. Small area of ischemia seen in left circumflex artery territory. 2. LV systolic function is normal. 3. TID ratio is elevated. Kevin Diaz MD (Electronically Signed) Final Date: 03 November 2024 12:03 S
[2024-11-01] MEDS: regadenoson 0.4 Mg/5 ml Syringe IVP (10:04)
[2024-11-01] MEDS: ondansetron 2 mg/ML SDV 2 mL 4 MG IVP (10:14)
[2024-11-01 10:50] VITALS: BP 148/93; PULSE 77
== END 2024-11-01 08:40 | disposition home or self-care (01) ==
LOC: CDL 08:40
PROVIDERS: PCP Family Medicine; Visit Provider Family Medicine
DX: R07.9 Chest pain, unspecified (principal); R06.09 Other forms of dyspnea; R93.1 Abnormal findings on diagnostic imaging of heart and coronary circulation
CPT/HCPCS: 36415; 78452; 93017; 96374; 96375; A9500; J2405; J2785

== ENCOUNTER 2024-11-02 06:30 | Outpatient (RCR) | payer MEDICAID, SELFPAY | END 2024-11-15 09:43 | disposition home or self-care (01) | LOC: SPT 06:30 | PROVIDERS: PCP Family Medicine; Visit Provider Orthopaedic Surgery | DX: M25.511 Pain in right shoulder (principal); G89.29 Other chronic pain | CPT/HCPCS: 97110 ==

== ENCOUNTER → 2024-12-07 09:43 | Outpatient (BNVA) | payer MEDICAID, SELFPAY | PROVIDERS: PCP Family Medicine | DX: R39.9 Unspecified symptoms and signs involving the genitourinary system (principal) | CPT/HCPCS: 81000; 87077; 87086; 87184 ==

== ENCOUNTER → 2024-12-21 11:24 | Outpatient (BNVA) | payer MEDICAID, SELFPAY | PROVIDERS: PCP Family Medicine; Referring Provider Family Medicine; Visit Provider Internal Medicine Cardiovascular Disease | DX: R07.9 Chest pain, unspecified (principal); R06.09 Other forms of dyspnea; R58 Hemorrhage, not elsewhere classified | CPT/HCPCS: 36415; 80048; 85025; 85610 ==

== ENCOUNTER → 2024-12-25 10:09 | Outpatient (BNVA) | payer MEDICAID, SELFPAY | PROVIDERS: PCP Family Medicine; Visit Provider Emergency Medicine | DX: R39.9 Unspecified symptoms and signs involving the genitourinary system (principal) | CPT/HCPCS: 81000 ==

== ENCOUNTER 2025-01-21 09:57 | Outpatient (CLI) | payer MEDICAID, SELFPAY ==
--- NOTE | 2025-01-21 10:00 | USCV_ITS ---
Naun Jennifer Age: 54 Gender: F : 1970 Exam Date: 01/21/2025 10:13 Ordering Phys: Yari Gallegos MD ([email or web address]) Technologist: Dedrick Messina [place] [facility] [place]: sob BP: 112 / 68 HR: 58 Rhythm: Sinus Technical Quality: Adequate MEASUREMENTS (Male / Female) Normal Values 2D ECHO LV Diastolic Diameter PLAX 5.2 cm 4.2 - 5.9 / 3.9 - 5.3 cm IVS Diastolic Thickness 0.9 cm 0.6 - 1.0 / 0.6 - 0.9 cm IVS Systolic Thickness 1.8 cm LVPW Diastolic Thickness 0.9 cm 0.6 - 1.0 / 0.6 - 0.9 cm LVPW Systolic Thickness 1.7 cm LVOT Diameter 2.1 cm LV Ejection Fraction 2D Teich 72.0 % LV Ejection Fraction MOD 4C 64.4 % LV Ejection Fraction MOD 2C 54.2 % LV Ejection Fraction 2C AL 56.9 % LA Diameter 3.3 cm RA Systolic Volume 4C AL 60.6 ml RA Systolic Volume 4C MOD 58.1 ml LA Sys Volume AL 56.7 cm cubed LA Sys Volume Index AL 28.8 cm cubed/m squared Aorta at Sinotubular Diameter 2.3 cm IVC Diameter 1.2 cm M-MODE LA Ao Ratio MM 1.2 AV Cusp Separation MM 2.4 cm DOPPLER AV Peak Velocity 111.0 cm/s LVOT Peak Velocity 92.0 cm/s AV Area Cont Eq vti 3.4 cm squared AV Area Cont Eq pk 2.8 cm squared MV Peak Velocity 100.0 cm/s MV Area PHT 2.8 cm squared Mitral E to A Ratio 0.7 TV Peak Velocity 326.0 cm/s TR Peak Velocity 367.0 cm/s TR Peak Gradient 53.9 mmHg TR Mean Velocity 294.0 cm/s TR Mean Gradient 36.8 mmHg TR Velocity Time Integral 96.9 cm PV Peak Velocity 96.7 cm/s RV Ejection Time 0.3 s FINDINGS Left Ventricle Normal left ventricular size, systolic function and wall thickness, with no regional wall motion abnormalities. Left ventricular ejection fraction is estimated at 60 %. Grade I/IV diastolic dysfunction (abnormal relaxation filling pattern), normal to mildly elevated filling pressures. Right Ventricle The right ventricle is normal in size and function. Right Atrium The right atrium is normal in size. Left Atrium The left atrium is normal in size. Mitral Valve Mildly thickened mitral valve. No mitral valve stenosis. Trace mitral valve regurgitation. Aortic Valve Thickened aortic valve. No aortic valve stenosis. Trace aortic valve regurgitation. Tricuspid Valve Structurally normal tricuspid valve without significant stenosis or regurgitation. Pulmonary artery systolic pressure is normal. Pulmonic Valve Mild pulmonary valve regurgitation. Pericardium Normal pericardium without effusion. Aorta Normal ascending aorta dimension. IVC The inferior vena cava appears normal. CONCLUSIONS Normal left ventricular size, systolic function and wall thickness, with no regional wall motion abnormalities. Left ventricular ejection fraction is estimated at 60 %. Grade I/IV diastolic dysfunction (abnormal relaxation filling pattern), normal to mildly elevated filling pressures. Mildly thickened mitral valve. No mitral valve stenosis. Trace mitral valve regurgitation. Thickened aortic valve. No aortic valve stenosis. Trace aortic valve regurgitation. There is no pericardial effusion. Right atrial pressure is around 5 mm of mercury. Yari Gallegos MD (Electronically Signed) Final Date: 27 January 2025 12:17 S
== END 2025-01-21 09:58 | disposition home or self-care (01) ==
LOC: RAD 09:58
PROVIDERS: PCP Family Medicine; Visit Provider Internal Medicine Cardiovascular Disease
DX: R06.02 Shortness of breath (principal); I51.89 Other ill-defined heart diseases; I34.0 Nonrheumatic mitral (valve) insufficiency; I35.1 Nonrheumatic aortic (valve) insufficiency; I37.1 Nonrheumatic pulmonary valve insufficiency
CPT/HCPCS: 93306

== ENCOUNTER 2025-04-07 08:46 | Outpatient (CLI) | payer MEDICAID, SELFPAY ==
[2025-04-07] VITALS (40 sets, daily range): BP systolic 89–144; BP diastolic 63–90; PULSE 65–83; RESP 12–26; TEMP 36.5; O2SAT 90–96; BMI 30.9
[2025-04-07 09:15] LABS: Hematocrit 40.6 % (36-47); Hemoglobin 13.90 g/dL (11.27-16.99); Mean Corpuscular HGB Conc 34.2 g/dL (30-55); Mean Corpuscular Hemoglobin 29.7 pg (27-33); Mean Corpuscular Volume 86.8 fl (85-98); Nucleated Red Blood Cells % 0 %; Platelet Count 191 10^3/cmm (157-399); Red Blood Count 4.68 10^6/uL (3.85-5.65); White Blood Count 8.21 10^3/uL (3.29-11.43)
[2025-04-07 09:33] LABS: Anion Gap 16.4 (5-19); Blood Urea Nitrogen 22 mg/dL (6-20); Calcium 9.5 mg/dL (8.5-10.5); Carbon Dioxide 25 mmol/L (22-29); Chloride 102 mmol/L (98-107); Glucose 167 mg/dL (65-115); Osmolality Calculated 295 mOsm/kg (285-295); Potassium 4.4 mmol/L (3.5-5.1); Sodium 139 mmol/L (136-145)
--- NOTE | 2025-04-07 10:00 | XACV_ITS ---
Ht: 165 cm Wt: 84 kg BSA: 2.00 m2 Gender: Female : 1970 Any Known Allergies: Other Exam Priority: Routine Procedure(s): Procedure Description: Diagnostic procedure Procedure Description: PCI procedure Procedure Description: Drug Eluting Coronary Stent Procedure Description: PTCA Procedure Description: Miscellaneous Procedure Description: ACT Procedure Description: Coronary Angiography Procedure Description: Pressure Wire El RIVERS; Diagnostic Cath Status: Elective Diagnostic Findings * Indication: Chest pain/abnormal stress test. * Left Main has no disease. * Proximal Left Anterior Descending: significant 80% stenosis, DEMI: 3 flow, iFR performed: ratio is 0.9. * Proximal Right Coronary Artery: obstructive 60% stenosis, DEMI: 3 flow. * Distal Right Coronary Artery: moderate 50% stenosis, DEMI: 3 flow. * Distal Circumflex: luminal irregularities 20% stenosis, DEMI: 3 flow. * Ramus: luminal irregularities 20% stenosis, DEMI: 3 flow. * Coronary angiography shows right dominance. PCI Status: Elective PCI Indication: Other Interventional Findings * Proximal Left Anterior Descendin% stenosis treated with a AB TREK 2.50X12 RX BALLOON, RINKU Hill CELINA 3.5X15 DIRK, and [place] ELDER EUPHORA RX [id number] BALLOON. 0% residual stenosis, DEMI: 3 flow. Conclusions 1. There is significant coronary artery disease with three vessel disease. 2. Proximal Left Anterior Descending was treated with a Balloon, Drug Eluting Stent, and Balloon. Recommendations * 1-Return to inpatient for close monitoring and routine cath care 2-Risk factor modification for secondary prevention 3-Statin and aspirin 81 mg life-long, if tolerated 4-Patient was pre-loaded with 600 mg of Plavix, continue Plavix 75mg p.o. daily for at least one year. We will assess at the end of one year again to continue if further or not 5-Continue optimal medical management 6-Follow up with Dr. Gallegos in four weeks and your primary care in 10 days. Diagnostic RX Recommendation: PCI w/o planned CABG Pressures Phase:Rest AO : 112 / 80 ( 94 ) @ 10:53:00 AM Clinical Evaluation EBL: 5mL-10mL Procedural Details Procedure Consent Obtained. Pre-Procedure Time Out. Identified patient by full name and date of as verbalized by the patient/guarantor. Does the consent match the physician's order: Yes. Accurate & Complete Informed Consent: Yes. Inpatient/Outpatient History & Physical on Chart: Yes. If H&P is completed, is and addenduem needed: No. Visualize and Verify Site with Patient/Guarantor: N/A. Relevant Radiology Images available: Yes. The risks, benefits, and alternatives of sedation and/or procedure were discussed by physician. The patient agrees to continue. Procedure started. [facility] Clinical Fraility Score: 3: Managing Well. Annual Campaign Manager Indications: New Onset Angina/Abnormal stress test. Chest Pain Symptom Assessment: Typical Angina Symptoms. Cardiovascular Instability: No. Correct patient, site and procedure confirmed by cath team. PERRLA. Strong, equal hand chainer bilaterally. Lungs clear x 5 lobes. IV Site on Arrival: 20 gauge in the left anticubital. IV Fluids: 0.9% NaCl at KVO. 0 mL infused prior to geochemical laboratory technician. Pre Procedural Pulses: bilateral dorsalis pedis was 3+. Pre Procedural Pulses: bilateral posterior tibial was 3+. Pre Procedural Pulses: bilateral radial was 3+. Oxygen started at 2liters/min via nasal canula. right groin was prepped with chloroprep then draped in the usual sterile fashion. right radial was prepped with chloroprep then draped in the usual sterile fashion. Physician notified. Baseline sample Acquired. HR: 71 BPM. Patient's family unavailable. Equipment: 6F - Radial. Cardiac Cath Pack. ACIST Manifold Kit Model BT 2000. Heparinized Saline (2 units/mL), 1000 mL bag. Physician arrived. Physician scrubbed in. Immediate Pre-Procedure Time Out. Correct Patient: Yes; Correct Procedure: Yes; Correct Site: Yes; Correct Patient Position: Yes; Correct Supplies: Yes; Dried Flammable Prep: Yes; Blood Products Available: N/A;. Lidocaine 1% infiltrated to the right radial. Arterial access obtained. A 5 indian William catheter in over the exchange J wire. Multiple views taken of right coronary artery. Catheter redirected to the LCA. Multiple views taken of left coronary artery. Catheter removed over the exchange J wire. 6 indian XB 3.5 guide catheter was inserted over the exchange J wire. iFR guidewire was advanced through the guide catheter to lesion in the prox LAD. ACT drawn. Results 254 seconds. Therapeutic limits - pre-heparin administration 90-150 seconds and monitoring heparin during a vascular procedure >250 seconds. iFR of the Prox LAD = 0.90 with a pullback of 0.90. Runthrough guidewire was advanced through the guide catheter to lesion in the prox LAD. iFR wire out. Inflation number : 1 A AB TREK 2.50X12 RX BALLOON was prepped and advanced across the Prox LAD , then inflated to 18 CHUCKIE for 0:12 seconds. Balloon out. Inflation Number : 2 A RINKU Hill CELINA 3.5X15 DIRK -Lot Number# [id number] Exp. was prepped and advanced across the Prox LAD. The stent was deployed at 10 CHUCKIE for 0:16 seconds. Stent balloon out over wire. Inflation number : 3 A RINKU ELDER EUPHORA RX [id number] BALLOON was prepped and advanced across the Prox LAD , then inflated to 12 CHUCKIE for 0:15 seconds. Inflation number: 4 The RINKU ELDER EUPHORA RX [id number] BALLOON was reinflated across the Prox LAD, to 12 CHUCKIE for 0:10 seconds. Balloon out. Results checked. Wire out. ACT drawn. Results 302 seconds. Therapeutic limits - pre-heparin administration 90-150 seconds and monitoring heparin during a vascular procedure >250 seconds. Guide catheter out over the exchange J wire. Dr. Gallegos scrubbed out. A TR Band was successful obtaining hemostatsis at the Right Radial artery insertion site. Post Procedure: Pulses reassessed and unchanged. PERRLA. Strong, equal hand chainer bilaterally. No VTE prophylaxis required. Medication's Wasted: Lidocaine 1% = 18 mL. Medication's Wasted: Nitro = 49.8 mg. Medication's Wasted: Heparin = 3000 units. Total IV fluids: 75 mL. PCI Indication: CAD (without ischemic symptoms). Post-op diagnosis: iFR of the Prox LAD significant s/p DIRK x 1. Complications: none. Estimated blood loss: 5mL-10mL. Responsiveness - Normal response to verbal stimuli; alert and oriented, PERRLA. Airway - Unaffected, no intervention required; spontaneous ventilation. Circulation: W/N/L, pulses unchanged. Nausea/Vomiting: No. Procedure completed. Patient transferred by bed to CPRU. Vital chart was stopped. Access Site Site: Right Radial artery Sheath Size: 6 Fr Hemostasis Method: TR Band Hemostasis Success: Successful Procedure Medications Start: 10:06 AM Stop: 10:06 AM Medication: Fentanyl Amount: 50 mcg Route: I.V. Start: 10:15 AM Stop: 10:15 AM Medication: Versed Amount: 1 mg Route: I.V. Start: 10:23 AM Stop: 10:23 AM Medication: Versed Amount: 1 mg Route: I.V. Start: 10:23 AM Stop: 10:23 AM Medication: Fentanyl Amount: 50 mcg Route: I.V. Start: 10:24 AM Stop: 10:24 AM Medication: Nitrogylcerin Amount: 200 mcg Route: I.A. Start: 10:24 AM Stop: 10:24 AM Medication: Heparin Amount: 5000 units Route: I.V. Start: 10:45 AM Stop: 10:45 AM Medication: Heparin Amount: 3000 units Route: I.V. Start: 11:01 AM Stop: 11:01 AM Medication: Plavix Amount: 600 mg Route: P.O. I, the attending physician, have reviewed and verified all procedure medications. Yes, all medications given per verbal order History/Risk Factors Hypertension: No Dyslipidemia: No Peripheral Arterial Disease (PAD): No Myocardial Infarction (MN): No Obesity: No Renal Disease: No Tobacco Use: Current/Recent(w/in 1 year) Prior Interventions PCI: No CABG: No Valve Surgery: No Report Signatures Finalized by Yari Gallegos MD on 04/07/2025 11:23 AM
--- NOTE | 2025-04-07 10:12 | W.PM.OPSUD ---
Surgery/Procedure H&P Update DATE OF PROCEDURE: April 07, 2025 DATE H&P PERFORMED: 03/22/25 H&P UPDATE INFORMATION: I have reviewed H&P completed within last 30 days, I have examined patient prior to procedure, No changes to prior documentation and H&P is in [facility] EMR on date indicated PREOP DIAGNOSIS: Recurrent chest pain with worsening of symptoms/abnormal stress test PLANNED PROCEDURE: Operation Date: 04/07/25 10:00 Proposed Procedures p Cardiac Catheterization - C w/wo LV & Coros(Left) - Yari Gallegos MD PATIENT REASSESSED PRIOR TO SEDATION, WITH NO CHANGE NOTED: Yes PHYSICAL EXAM: alert, oriented x 3, clear to auscultation bilaterally, regular rate & rhythm and operative site marked AIRWAY EVAL/ANESTHESIA PLAN: ASA II and Patient agrees to continue as planned ADDITIONAL INFORMATION: Patient has been explained all risk-benefit and alternative for the procedure. Patient understands 2% risk of stroke major bleed. Patient understand 5% risk of minor bleeding bruising infection hematoma contrast-induced nephropathy urgent emergent vascular and bypass surgery. Patient agrees to it and would like to proceed with it.
--- NOTE | 2025-04-07 15:35 | PC.NURSE ---
Received patient from CPRU at 1355. Patient is s/p [facility] with pci via right radial artery. TR band still in place. SILVIA Kellogg in CPRU initiated air removal from TR band at ~1300 removing 2ml of air. Continued with 2ml of air removal every 15-20min until all air removed at 1500. Cleaned and covered site with 2x2 and bio-occlusive dressing. No s/s of bleeding or hematoma formation observed. Instructed patient on site renuka with restrictions. patient and spouse both verbalized complete understanding.
[2025-04-08] VITALS (7 sets, daily range): BP systolic 95–131; BP diastolic 60–86; PULSE 69–82; RESP 13–19; TEMP 36.6; O2SAT 92–98
[2025-04-08] MEDS: HYDROcodone-acetaminophen 5-325 mg Tablet 1 TAB PO (05:38)
[2025-04-08 06:57] LABS: Hematocrit 37.3 % (36-47); Hemoglobin 12.10 g/dL (11.27-16.99); Mean Corpuscular HGB Conc 32.4 g/dL (30-55); Mean Corpuscular Hemoglobin 29.2 pg (27-33); Mean Corpuscular Volume 89.9 fl (85-98); Nucleated Red Blood Cells % 0 %; Platelet Count 160 10^3/cmm (157-399); Red Blood Count 4.15 10^6/uL (3.85-5.65); White Blood Count 10.64 10^3/uL (3.29-11.43)
[2025-04-08 07:18] LABS: Anion Gap 14.4 (5-19); Blood Urea Nitrogen 19 mg/dL (6-20); Calcium 8.9 mg/dL (8.5-10.5); Carbon Dioxide 25 mmol/L (22-29); Chloride 101 mmol/L (98-107); Glucose 154 mg/dL (65-115); Osmolality Calculated 289 mOsm/kg (285-295); Potassium 3.4 mmol/L (3.5-5.1); Sodium 137 mmol/L (136-145)
--- NOTE | 2025-04-08 10:02 | PC.NURSE ---
pt is alert and oriented x 4.sr on monitor.right wrist with drsg dry and intact.no hematoma noted.palpable radial pulse present.pt is reporting tenderness from cath site up to elbow...inner arm.tylenol given with relief obtained
--- NOTE | 2025-04-08 12:08 | PC.NURSE ---
discharge instructions given and explained.pt verb understanding of instructions.discharge via w/c to exit at 1130.spouse to drive pt home
== END 2025-04-08 11:30 | disposition home or self-care (01) ==
LOC: CCL 08:50 → CSU 13:52
PROVIDERS: PCP Family Medicine; Visit Provider Internal Medicine Cardiovascular Disease
DX: I25.118 Atherosclerotic heart disease of native coronary artery with other forms of angina pectoris (principal); N18.31 Chronic kidney disease, stage 3a; K21.9 Gastro-esophageal reflux disease without esophagitis; E66.9 Obesity, unspecified; Z68.31 Body mass index [BMI] 31.0-31.9, adult; F17.210 Nicotine dependence, cigarettes, uncomplicated; F43.12 Post-traumatic stress disorder, chronic; F31.81 Bipolar II disorder; Z80.9 Family history of malignant neoplasm, unspecified; Z82.49 Family history of ischemic heart disease and other diseases of the circulatory system; Z84.19 Family history of other disorders of kidney and ureter
CPT/HCPCS: 36415; 80048; 85025; 85347; 93454; 93571; 99152; 99153; C1725; C1769; C1874; C1887; C1894; C9600; J1644; J2250; J3010; J3490; J7030; J9999; Q9967

== ENCOUNTER → 2025-04-21 11:27 | Outpatient (BNVA) | payer MEDICAID, SELFPAY | PROVIDERS: PCP Family Medicine; Visit Provider Nurse Practitioner Family | DX: I25.10 Atherosclerotic heart disease of native coronary artery without angina pectoris (principal); Z95.5 Presence of coronary angioplasty implant and graft | CPT/HCPCS: 36415; 80048 ==